=== PATIENT | male | born 1965 | race Caucasian/White ===

== ENCOUNTER 2017-03-11 15:44 | Emergency (ER) | payer BC ==
[~2017-03-11] VITALS: Ht 188 cm; Wt 110.4 kg
[2017-03-11 18:24] VITALS: BP 131/79
== END 2017-03-11 18:24 | disposition home or self-care (01) ==
LOC: ED 15:44
DX: S61.231A Puncture wound without foreign body of left index finger without damage to nail, initial encounter (principal); E11.9 Type 2 diabetes mellitus without complications; I10 Essential (primary) hypertension; F14.10 Cocaine abuse, uncomplicated; W22.8XXA Striking against or struck by other objects, initial encounter; Y93.89 Activity, other specified; Y92.89 Other specified places as the place of occurrence of the external cause; Y99.8 Other external cause status
CPT/HCPCS: 90715; J3490

== ENCOUNTER 2017-06-23 21:47 | Emergency (ER) | payer SELFPAY | END 2017-06-23 23:29 | disposition left against medical advice (07) | LOC: ED 21:47 | DX: Z53.21 Procedure and treatment not carried out due to patient leaving prior to being seen by health care provider (principal) ==

== ENCOUNTER 2017-06-24 08:18 | Emergency (ER) | payer BC ==
[~2017-06-24] VITALS: Ht 182.9 cm; Wt 112.5 kg
[2017-06-24 08:27] VITALS: BP 159/73; Ht 182.9 cm; Wt 112.5 kg
== END 2017-06-24 09:27 | disposition home or self-care (01) ==
LOC: ED 08:18
DX: L03.012 Cellulitis of left finger (principal); I10 Essential (primary) hypertension; E11.9 Type 2 diabetes mellitus without complications